=== PATIENT | male | born 1980 | race Caucasian/White ===

== ENCOUNTER 2024-11-11 05:27 | Emergency (ER) | payer BC, SELFPAY ==
[2024-11-11 05:28] VITALS: BP 118/78; PULSE 76; RESP 20; TEMP 36.6; O2SAT 99; BMI 30.7
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
[2024-11-11] MEDS: 0.9% Normal Saline (1000mL) 1,000 ML 999 ML IV (05:55)
[2024-11-11] MEDS: DiphenhydrAMINE 50 MG/ML Syringe IV (05:56)
[2024-11-11] MEDS: MethylPREDNISolone 125 MG/2 ML Vial IV (05:56)
[2024-11-11 06:01] LABS: Absolute Neutrophil Count 7.1 X10^3/uL (2.0-7.7); Basophil# 0.12 X10^3/uL; Basophil% 1.1 % (0-1); Eosinophil# 0.67 X10^3/uL; Eosinophils% 5.9 % (0-5); Hematocrit 46.1 % (40-54); Lymphocyte % 20.3 % (19-41); Mean Corp Hgb Conc 32.5 g/dL (32-36); Mean Corpuscular Hgb 30.4 pg (27.0-32.0); Mean Corpuscular Volume 93.3 fL (80-94); Mean Platelet Vol. 9.7 fl (6.2-12.0); Monocyte# 1.13 X10^3/uL; NRBC Flagged by Analyzer 0 % (0-5); Neutrophil # 7.06 X10^3/uL (2.7-7.7); Neutrophil % 62.3 % (47-70); Platelet Count 279 K/mm3 (150-450); RBC Distribution Width CV 13.4 % (11.6-14.6); RBC Distribution Width SD 45.9 fl (35.1-43.9); Red Blood Count 4.94 M/mm3 (4.6-6.2); White Blood Count 11.3 K/mm3 (4.4-11.0)
[2024-11-11 06:22] LABS: Prothrombin Time (Protime)PT. 13.6 SECONDS (11.7-14.9)
[2024-11-11 06:23] LABS: Partial Thromboplast Time 31.6 Seconds (24.1-36.2)
[2024-11-11 06:29] LABS: Anion Gap 10 (5-15); BUN 18 mg/dL (4-19); BUN/Creat Ratio 19.4 RATIO (10-20); Calcium,Total 9.7 mg/dL (7.6-11.0); Carbon Dioxide 25.6 mmol/L (21.0-32.0); Chloride 104 mmol/L (98-108); Creatinine, Serum 0.93 mg/dL (0.70-1.20); EST Glomerular Filtration Rate 103 (>60); Estimated Creatinine Clearance 119.47 ml/min (50-250); Glucose 114 mg/dL (70-99); Potassium 4.4 mmol/L (3.3-5.1); Sodium Level 140 mmol/L (133-145)
[2024-11-11 06:30] VITALS: BP 117/76; PULSE 73; RESP 16; O2SAT 97
[2024-11-11 07:00] VITALS: BP 115/73; PULSE 72; RESP 18; O2SAT 95
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
[2024-11-11 08:20] VITALS: BP 109/89; PULSE 82; RESP 14; TEMP 36.2; O2SAT 95
== END 2024-11-11 08:21 | disposition home or self-care (01) ==
PROVIDERS: Emergency Provider Emergency Medicine; PCP Nurse Practitioner Adult Health; Visit Provider Emergency Medicine
DX: S20.211A Contusion of right front wall of thorax, initial encounter (principal); I25.10 Atherosclerotic heart disease of native coronary artery without angina pectoris; Z87.891 Personal history of nicotine dependence; V20.49XA Other motorcycle driver injured in collision with pedestrian or animal in traffic accident, initial encounter; Z95.1 Presence of aortocoronary bypass graft; R10.9 Unspecified abdominal pain; S50.01XA Contusion of right elbow, initial encounter
CPT/HCPCS: 70450; 71260; 72125; 73080; 74177; 80048; 85025; 85610; 85730; 96361; 96374; 96375; 99285; Q9967; A4216